=== PATIENT | female | born 1950 | race Two or more races ===

== ENCOUNTER → 2020-07-27 | Outpatient (CLI) | payer MEDICARE, OTHER | END | disposition home or self-care (01) | LOC: CFH 13:19 | PROVIDERS: ATTEND Internal Medicine | DX: N63.10 Unspecified lump in the right breast, unspecified quadrant (principal) | CPT/HCPCS: 76642; 77065 ==

== ENCOUNTER 2020-08-07 10:11 | Outpatient (CLI) | payer MEDICARE, OTHER ==
[2020-08-07] MEDS ORDERED: LIDOCAINE 1%-EPI 1:100K, 20ML ONE (14:08)
[2020-08-07] MEDS ORDERED: LIDOCAINE 1%, 20ML ONE (14:08)
[2020-08-07] MEDS ORDERED: SODIUM BICARBONATE 4.0%, 5ML ONE (14:08)
== END 2020-08-07 23:59 | disposition home or self-care (01) ==
LOC: CFH 10:11
PROVIDERS: ATTEND Internal Medicine
DX: N63.11 Unspecified lump in the right breast, upper outer quadrant (principal); C50.411 Malignant neoplasm of upper-outer quadrant of right female breast; Z17.0 Estrogen receptor positive status [ER+]
CPT/HCPCS: 19083; 88305; 88360; 77065